=== PATIENT | female | born 1965 | race Caucasian/White ===

== ENCOUNTER 2017-01-01 14:03 | Emergency (ER) | payer OTHER ==
[2017-01-01 14:10] VITALS: BP 123/79; PULSE 87; RESP 15; TEMP 98; O2SAT 99
[2017-01-01 15:37] LABS: BLOOD, URINE NEG (NEG); GLUCOSE,URINE NEG (NEG); KETONE, URINE NEG (NEG); NITRITE,URINE NEG (NEG); SQUAMOUS EPITHELIAL CELL URINE 1 /hpf (0-5); URINE COLOR LIGHT-YELLOW (YELLW/STRAW)
[2017-01-01 15:40] LABS: COMMENT (UR) CULT NOT INDICATED; CULTURE IF INDICATED CULT NOT INDICATED
--- NOTE | 2017-01-01 15:48 | PD ---
HPI Chief Complaint: Psychiatric Symptoms Time Seen by Provider: 15:48 Travel History International Travel<30 days: No Contact w/Intl Traveler<30days: No Traveled to known affect area: No History of Present Illness HPI 51-year-old female history of depression, PTSD, bulimia, presents to the emergency department under Toth act for psychiatric evaluation. Patient offers little information but states she has been drinking a large amount of alcohol and is depressed. She is having suicidal ideations. She has no active plan. Reports history of suicide attempt. Denies illicit drug use. No other symptoms to report. PFSH Past Medical History Depression: Yes Psychiatric: Yes (PTSD) Immunizations Current: Yes Influenza Vaccination: No ?: Unknown Past Surgical History Surgical History: No Previous Surgery Section: Yes Social History Alcohol Use: Yes Tobacco Use: Yes Substance Use: Yes (ALCOHOL ABUSE) Allergies-Medications (Allergen,Severity, Reaction): Coded Allergies: No Known Allergies (Unverified , 01/01/17) Reported Meds & Prescriptions Reported Meds & Active Scripts Active No Active Prescriptions or Reported Medications Review of Systems Except as stated in HPI: all other systems reviewed are Neg Physical Exam Narrative GENERAL: Well-nourished, tearful female patient, in no acute distress SKIN: Focused skin assessment warm/dry. HEAD: Atraumatic. Normocephalic. EYES: Pupils equal and round. No scleral icterus. No injection or drainage. ENT: No nasal bleeding or discharge. Mucous membranes pink and moist. NECK: Trachea midline. No JVD. CARDIOVASCULAR: Regular rate and rhythm. No murmur appreciated. RESPIRATORY: No accessory muscle use. Clear to auscultation. Breath sounds equal bilaterally. GASTROINTESTINAL: Abdomen soft, non-tender, nondistended. Hepatic and splenic margins not palpable. MUSCULOSKELETAL: No obvious deformities. No clubbing. No cyanosis. No edema. NEUROLOGICAL: Awake and alert. No obvious cranial nerve deficits. Motor grossly within normal limits. Normal speech. Data Data Last Documented VS Vital Signs Date Time Temp Pulse Resp B/P Pulse Ox O2 Delivery O2 Flow Rate FiO2 01/01/17 14:10 98.0 87 15 123/79 99 Orders Complete Blood Count With Diff (01/01/17 14:58) Comprehensive Metabolic Panel (01/01/17 14:58) Urinalysis - C+S If Indicated (01/01/17 14:58) Psych Screen (01/01/17 14:58) Drug Screen, Random Urine (01/01/17 15:24) Diet Regular Basic (01/01/17 Dinner) Labs Laboratory Tests Test 01/01/17 14:55 White Blood Count 8.9 TH/MM3 Red Blood Count 4.33 MIL/MM3 Hemoglobin 14.0 GM/DL Hematocrit 42.0 % Mean Corpuscular Volume 96.9 FL Mean Corpuscular Hemoglobin 32.4 PG Mean Corpuscular Hemoglobin 33.5 % Concent Red Cell Distribution Width 13.2 % Platelet Count 225 TH/MM3 Mean Platelet Volume 8.5 FL Neutrophils (%) (Auto) 64.3 % Lymphocytes (%) (Auto) 26.6 % Monocytes (%) (Auto) 5.5 % Eosinophils (%) (Auto) 3.0 % Basophils (%) (Auto) 0.6 % Neutrophils # (Auto) 5.7 TH/MM3 Lymphocytes # (Auto) 2.4 TH/MM3 Monocytes # (Auto) 0.5 TH/MM3 Eosinophils # (Auto) 0.3 TH/MM3 Basophils # (Auto) 0.1 TH/MM3 CBC Comment DIFF FINAL Differential Comment Urine Color LIGHT-YELLOW Urine Turbidity CLEAR Urine pH 7.0 Urine Specific [place] 1.004 Urine Protein NEG mg/dL Urine Glucose (UA) NEG mg/dL Urine Ketones NEG mg/dL Urine Occult Blood NEG Urine Nitrite NEG Urine Bilirubin NEG Urine Urobilinogen LESS THAN 2.0 MG/DL Urine Leukocyte Esterase NEG Urine RBC 1 /hpf Urine WBC 1 /hpf Urine Squamous Epithelial 1 /hpf Cells Microscopic Urinalysis Comment CULT NOT INDICATED Sodium Level 139 MEQ/L Potassium Level 3.7 MEQ/L Chloride Level 102 MEQ/L Carbon Dioxide Level 23.1 MEQ/L Anion Gap 14 MEQ/L Blood Urea Nitrogen 11 MG/DL Creatinine 0.85 MG/DL Estimat Glomerular Filtration 70 ML/MIN Rate Random Glucose 71 MG/DL Calcium Level 9.0 MG/DL Total Bilirubin 0.3 MG/DL Aspartate Amino Transf 22 U/L (AST/SGOT) Alanine Aminotransferase 22 U/L (ALT/SGPT) Alkaline Phosphatase 73 U/L Total Protein 8.0 GM/DL Albumin 4.6 GM/DL MDM Medical Decision Making Medical Screen Exam Complete: Yes Emergency Medical Condition: Yes Medical Record Reviewed: Yes Differential Diagnosis Mood disorder versus personality disorder versus adjustment reaction disorder versus substance abuse Narrative Course 51-year-old female presents to the emergency department for evaluation under Toth act. Patient is tearful about without distress. CBC, CMP, and urinalysis is without acute concern. Patient is medically cleared to undergo psychiatric screening for further evaluation and disposition. Mental health screening discussed with the patient. Psychiatric screen ordered. Diagnosis Primary Impression: Substance induced mood disorder Additional Impression: Suicidal thoughts Scripts No Active Prescriptions or Reported Meds Condition: Anabelle Boyle Jan 01, 2017 15:48
[2017-01-01 15:49] LABS: AUTOMATED NEUTROPHIL # 5.7 TH/MM3 (1.8-7.7); BASOPHIL # 0.1 TH/MM3 (0-0.2); BASOPHIL % 0.6 % (0.0-2.0); EOSINOPHIL # 0.3 TH/MM3 (0-0.4); HEMO FLAGS DIFF FINAL; LYMPH % 26.6 % (9.0-44.0); LYMPHOCYTE # 2.4 TH/MM3 (1.0-4.8); MEAN CELL VOLUME 96.9 FL (80.0-100.0); MEAN CORPUSCULAR HEMOGLOBIN 32.4 PG (27.0-34.0); MEAN CORPUSCULAR HGB CONC 33.5 % (32.0-36.0); MONO % 5.5 % (0.0-8.0); NEUT % 64.3 % (16.0-70.0); PLATELET COUNT 225 TH/MM3 (150-450); RED BLOOD COUNT 4.33 MIL/MM3 (4.00-5.30); RED CELL DISTRIBUTION WIDTH 13.2 % (11.6-17.2); WHITE BLOOD COUNT 8.9 TH/MM3 (4.0-11.0)
[2017-01-01 15:57] LABS: ANION GAP 14 MEQ/L (5-15); AST (GOT) 22 U/L (15-37); BICARBONATE 23.1 MEQ/L (21.0-32.0); BLOOD UREA NITROGEN 11 MG/DL (7-18); CHLORIDE 102 MEQ/L (98-107); GLOMERULAR FILTRATION RATE 70 ML/MIN (>89); POTASSIUM 3.7 MEQ/L (3.5-5.1); SODIUM (NA) 139 MEQ/L (136-145)
[2017-01-01 16:00] LABS: ALKALINE PHOSPHATASE 73 U/L (45-117); ALT (GPT) 22 U/L (10-53); TOTAL BILIRUBIN ADULT 0.3 MG/DL (0.2-1.0)
[2017-01-01 17:00] VITALS: BP 96/54; PULSE 86; RESP 17; O2SAT 100
[2017-01-01 17:52] VITALS: BP 96/54; PULSE 86; RESP 17; TEMP 98; O2SAT 100
[2017-01-01 19:24] LABS: AMPHETAMINE, URINE NEG (NEG); BARBITURATES, URINE NEG (NEG); COCAINE, URINE NEG (NEG)
[2017-01-01 22:08] VITALS: BP 122/68; PULSE 78; RESP 18
[2017-01-02 02:12] VITALS: BP 123/74; PULSE 77; RESP 17; O2SAT 97
[2017-01-02 06:15] VITALS: BP 175/75; PULSE 80; RESP 18; O2SAT 98
--- NOTE | 2017-01-02 13:19 | PD.CONS ---
Provisional Diagnosis [place] I. Alcohol-induced mood disorder, alcohol use disorder, history of PTSD, [place] II. Deferred [place] III. No medical problem [place] IV. Continues use of alcohol [place] V. 55 History of Present Illness Service Psychiatry Consult Requested By Primary Care Physician No Primary Care Physician HPI The patient is a 51-year-old woman, domicile with a friend, single, unemployed, with psychiatric history of depression, PTSD, bulimia, 2 previous psychiatric hospitalizations, the last one was a year ago, no active psychiatric care, no psychotropics, no significant medical care, who presents to the emergency department under Toth act for psychiatric evaluation. Patient initially offered little information but states she has been drinking a large amount of alcohol and was depressed. BAL was 257. Today on psychiatric evaluation patient is calm, restless, requesting to be discharged. Patient denies depressive symptoms, she reports good mood, she says that she wants to go because she was to see her son who came to visit from [place]. Patient says that yesterday she was drunk and was very emotional because her son came from [place] for sport activities and she did not have money to go and meet him. But at this time, she denies depression, she denies anxiety, she denies miah, denies perceptual disturbances. Patient denies visual and auditory hallucinations, patient denies suicidal and homicidal ideation. Patient is fully oriented 3, no gross cognitive impairment observed. On longitudinal observation in the ER patient has been cooperative, no agitation or aggressive behavior reported. Patient reports daily use of alcohol, 3-4 beers per day, she denies withdrawal, she denies previous detox, she denies other drugs. Review of Systems Constitutional: DENIES: Diaphoretic episodes, Fatigue, Fever, Weight gain, Weight loss, Chills, Dizziness, Change in appetite, Night Sweats Endocrine: DENIES: Abnorml menstrual pattern, Heat/cold intolerance, Polydipsia , Polyuria, Polyphagia Eyes: DENIES: Blurred vision, Diplopia, Eye inflammation, Eye pain, Vision loss , Photosensitivity, Double Vision Ears, nose, mouth, throat: DENIES: Tinnitus, Hearing loss, Vertigo, Nasal discharge, Oral lesions, Throat pain, Hoarseness, Ear Pain, Running Nose, Epistaxis, Sinus Pain, Toothache, Odynophagia Cardiovascular: DENIES: Chest pain, Palpitations, Syncope, Dyspnea on Exertion , PND, Lower Extremity Edema, Orthopnea, Claudication Gastrointestinal: DENIES: Abdominal pain, Black stools, Bloody stools, Constipation, Diarrhea, Nausea, Vomiting, Difficulty Swallowing, Anorexia Genitourinary: DENIES: Abnormal vaginal bleeding, Dysmenorrhea, Dyspareunia, Sexual dysfunction, Urinary frequency, Urinary incontinence, Urgency, Hematuria , Dysuria, Nocturia, Vaginal discharge Musculoskeletal: DENIES: Joint pain, Muscle aches, Stiffness, Joint Swelling, Back pain, Neck pain Integumentary: DENIES: Abnormal pigmentation, Pruritus, Rash, Nail changes, Breast masses, Breast skin changes, Nipple discharge Hematologic/lymphatic: DENIES: Bruising, Lymphadenopathy Immunologic/allergic: DENIES: Eczema, Urticaria Neurologic: DENIES: Abnormal gait, Headache, Localized weakness, Paresthesias, Seizures, Speech Problems, Tremor, Poor Balance Psychiatric: DENIES: Anxiety, Confusion, Mood changes, Depression, Hallucinations, Agitation, Suicidal Ideation, Homicidal Ideation, Delusions Past Family Social History Coded Allergies: Morphine (Verified Allergy, Intermediate, 01/01/17) No Active Prescriptions or Reported Meds Family History She denies Social History Patient was born and raised in [place], she is [facility] with a friend, she is unemployed, single, her highest level of education is some college Physical Exam No agitation, no tremors, no withdrawal symptoms Vital Signs Vital Signs Date Time Temp Pulse Resp B/P Pulse Ox O2 Delivery O2 Flow Rate FiO2 01/02/17 06:15 80 18 175/75 98 Room Air 01/01/17 17:52 98.0 Mental Status Examination Appearance woman, age appearing, good hygiene, [facility], calm, restless and anxious Speech: Unremarkable Orientation: x3 Memory: Unremarkable Thought Process: Logical Thought Content: Unremarkable Hallucination Type: None Suicidal Ideation: No Previous Suicide Attempts: No Homicidal Ideation: No Insight: Good Affect: Good Mood: Appropriate Motor Activity: Normal gait Assessment & Plan Problem List: (1) Alcohol abuse with alcohol-induced mood disorder Assessment & Plan: At the moment of this psychiatric evaluation patient does not present any acute, significant or concerning objective symptomatology of depression or psychosis. She seems to be anxious and restless, could be related with alcohol withdrawal, the patient denies. The patient denies suicidal and homicidal ideation, she denies visual and auditory hallucinations. At this moment she does not meet criteria for psychiatric admission. Extensive psychoeducation, support, motivation was provided. Patient was offered referral to detox, she declined. Toth act will be lifted. ICD Code: F10.14 Assessment & Plan Estimated LOS: Marlo Pop MD Jan 02, 2017 13:19
== END 2017-01-02 08:57 | disposition home or self-care (01) ==
LOC: NEDAMB 14:03 → NEPJ 01-02 08:57
DX: F10.14 Alcohol abuse with alcohol-induced mood disorder (principal); Y90.8 Blood alcohol level of 240 mg/100 ml or more
CPT/HCPCS: 80053; 80307; 81001; 85025; 99285